=== PATIENT | male | born 1965 | race Caucasian/White ===

== ENCOUNTER 2017-04-12 00:02 | Inpatient (IN) | payer MEDICAID, OTHER ==
[~2017-04-12] VITALS: Ht 188 cm; Wt 65.3 kg
[~2017-04-12 00:02] MED LIST: ACET650S24 RC; LEVO500T90 PO; METR500T4 PO; PANT40TA2 PO; RIFA550T PO
[2017-04-12] MEDS ORDERED: IV D5/ 0.9% NACL 1,000 ML IV ONE (00:11)
[2017-04-12] MEDS ORDERED: ONDANSETRON 4 MG/2 ML VIAL IV ONE (00:15)
[2017-04-12] MEDS ORDERED: THIAMINE HCL 200 MG/2 ML VIAL IV ONE (00:15)
[2017-04-12] MEDS ORDERED: PANTOPRAZOLE SODIUM 40 MG VIAL IV ONE (00:15)
--- NOTE | 2017-04-12 00:28 | NUR ---
Patient BIB [facility] c/o anxiety. [facility] reported that this was the third visit for the same problem but that patient refused transportation the prior two times. Patient presents A/O x1, shaking uncontrollably despite being afebrile and provided with multiple blankets. Patient unable to provide detailed history and states that he thinks he had a stroke about a year ago. To room 5A, [facility] at bedside for MSE.
[2017-04-12] MEDS ORDERED: PANTOPRAZOLE SODIUM 40 MG VIAL ONE (00:39)
[2017-04-12] MEDS ORDERED: THIAMINE HCL 200 MG/2 ML VIAL ONE (00:39)
[2017-04-12] MEDS ORDERED: ONDANSETRON 4 MG/2 ML VIAL ONE (00:39)
[2017-04-12 00:44] LABS: BASOPHILS % (AUTO) 0.3 % (0.0-2.0); EOSINOPHILS # (AUTO) 0.1 K/uL (0.0-0.7); HEMOGLOBIN 15.8 G/DL (14.0-18.0); LYMPHOCYTES # (AUTO) 0.5 K/UL (0.8-4.8); LYMPHOCYTES % (AUTO) 7.3 % (20.5-51.5); MEAN CORPUSCULAR HEMOGLOBIN 32.4 UUG (27.0-31.0); MEAN CORPUSCULAR HGB CONC 32 g/dL (32.0-37.0); MEAN CORPUSCULAR VOLUME 100.2 FL (82.0-92.0); MONOCYTES # (AUTO) 0.7 K/UL (0.1-1.30); NEUTROPHILS # (AUTO) 6.1 K/UL (1.8-8.9); NEUTROPHILS % (AUTO) 82.4 % (38.5-71.5); PLATELET COUNT (AUTO) 142 K/UL (150-450); RED BLOOD CELL COUNT(AUTO) 4.89 MIL/UL (4.7-6.1); WHITE BLOOD COUNT (AUTO) 7.4 K/UL (4.0-11.2)
[2017-04-12 00:54] LABS: ETHANOL < 3 MG/DL (0-0)
[2017-04-12 00:56] LABS: BILIRUBIN,DIRECT 0.7 mg/dL (0.0-0.2); BILIRUBIN,TOTAL 2.8 mg/dL (0.2-1.0); CREATININE 0.9 mg/dL (0.6-1.3); TOTAL PROTEIN, SERUM 6.7 g/dL (6.4-8.2)
[2017-04-12 01:01] LABS: POTASSIUM 2.9 mmol/L (3.5-5.1)
[2017-04-12] MEDS ORDERED: IV NORMAL SALINE 1000 ML BAG IV ONE (01:15)
[2017-04-12] MEDS ORDERED: LORAZEPAM 2 MG/1 ML VIAL IV ONE (01:15)
[2017-04-12] MEDS ORDERED: MAGNESIUM SULFATE/D5W 100 ML ONE (01:25)
[2017-04-12] MEDS: MAGNESIUM SULFATE/D5W 100 ML IV SCH ×3 (01:30→04:44)
[2017-04-12] MEDS ORDERED: PIPERACILLIN SODIUM/TAZOBACTAM 3.375 G in IV DEXTROSE 5% 50 ML IV ONE (01:30)
[2017-04-12] MEDS ORDERED: METRONIDAZOLE 500 MG/NS 100 ML PIGGYBACK IV ONE (01:30)
[2017-04-12] MEDS ORDERED: LORAZEPAM 2 MG/1 ML VIAL ONE (01:34)
[2017-04-12 01:36] LABS: *OCCULT BLOOD STOOL NEGATIVE (NEGATIVE)
[2017-04-12] MEDS ORDERED: ENOXAPARIN SODIUM 80 MG/0.8 ML DISP.SYRIN SQ ONE ×2 (01:45→01:47)
[2017-04-12 01:49] LABS: *AMPHETAMINE, URINE NEGATIVE (NEGATIVE); *BARBITURATE, URINE NEGATIVE (NEGATIVE); *CANNABINOID, URINE NEGATIVE (NEGATIVE); *COCCAINE, URINE NEGATIVE (NEGATIVE); *OPIATE, URINE NEGATIVE (NEGATIVE); *PHENCYCLIDINE SCREEN,URINE NEGATIVE (NEGATIVE)
[2017-04-12] MEDS ORDERED: PIPERACILLIN/TAZOBACTAM/D5W 50 ML IV ONE (02:11)
[2017-04-12] MEDS ORDERED: METRONIDAZOLE 500 MG/NS 100ML 100 ML IV ONE (02:11)
[2017-04-12] MEDS ORDERED: Z GUARD REMEDY PASTE 57 GM TUBE TOP PRN (02:30)
[2017-04-12] MEDS ORDERED: ONDANSETRON 4 MG/2 ML VIAL IV PRN (02:30)
[2017-04-12] MEDS ORDERED: IV 0.9% SODIUM CHLORID+ 20 KCL 1,000 ML IV SCH (02:30)
[2017-04-12] MEDS ORDERED: MAGNESIUM HYDROXIDE 30 ML LIQUID UDC PO PRN (02:30)
[2017-04-12] MEDS ORDERED: HYDROMORPHONE 1 MG/1 ML DISP.SYRIN IV PRN ×2 (02:30→10:45)
[2017-04-12] MEDS ORDERED: ACETAMINOPHEN 325 MG TABLET PO PRN (02:30)
[2017-04-12 04:00] VITALS: BP 121/79
[2017-04-12] MEDS ORDERED: MAGNESIUM SULFATE/D5W 300 ML ONE (04:03)
--- NOTE | 2017-04-12 04:30 | NUR ---
RECEIVED PATIENT VIA GURNEY FROM ER. PATIENT IS A/O X4. REDNESS NOTED ALL OVER BODY. PATIENT REFUSED PICTURES TO BE TAKEN. NO OPEN AREA NOTED ON SKIN ASSESSMENT. DENIES PAIN AT THIS TIME. NO RESP. DISTRESS NOTED. VSS. PLACED ON TELE ORDERED, SR 90'S. ORIENTED PATIENT TO ROOM AND CALL LIGHT. CALL LIGHT IN REACH, BED ALARM ON. ALL NEEDS ATTENDED. WILL CONTINUE TO MONITOR.
--- NOTE | 2017-04-12 04:45 | NUR ---
Pharmacy Note: Magnesium Sulfate 4G IV ordered by ERMMel[facility]. A total of 4 (1G) bags were used. Bag #1 infused in ER. Bag #2 started in ER and endorsed to TELE. Bag #3 and #4 endorsed to TELE to complete.
--- NOTE | 2017-04-12 04:47 | NUR ---
Pt. admitted to TELE, under care of Dr. Rod Belongs List completed
--- NOTE | 2017-04-12 05:00 | NUR ---
PATIENT HAD A RUN OF ATRIAL-TACH UP TO THE 140'S, NON-SUSTAINED.
--- NOTE | 2017-04-12 06:33 | NUR ---
PATIENT ASLEEP IN BED. ON TELE SR. VSS. CALL LIGHT IN REACH.
[2017-04-12] MEDS: PANTOPRAZOLE SODIUM 40 MG TABLET.DR PO SCH ×2 (08:34→16:53)
[2017-04-12] MEDS: THIAMINE HCL 100 MG TABLET PO SCH (08:34)
[2017-04-12] MEDS: FOLIC ACID 1 MG TABLET PO SCH (08:34)
[2017-04-12] MEDS: PIPERACILLIN/TAZOBACTAM/D5W 50 ML IV SCH ×2 (08:35→14:04)
[2017-04-12] MEDS ORDERED: RIFAXIMIN 550 MG TABLET PO SCH (10:35)
[2017-04-12 11:19] LABS: BASOPHILS % (AUTO) 0.3 % (0.0-2.0); EOSINOPHILS % (AUTO) 0.6 % (0.0-7.0); HEMATOCRIT 44.4 % (40-50); LYMPHOCYTES # (AUTO) 0.7 K/UL (0.8-4.8); LYMPHOCYTES % (AUTO) 11.6 % (20.5-51.5); MEAN CORPUSCULAR HEMOGLOBIN 34.3 UUG (27.0-31.0); MEAN CORPUSCULAR HGB CONC 34 g/dL (32.0-37.0); MEAN CORPUSCULAR VOLUME 101.3 FL (82.0-92.0); MONOCYTES # (AUTO) 0.7 K/UL (0.1-1.30); NEUTROPHILS # (AUTO) 4.6 K/UL (1.8-8.9); NEUTROPHILS % (AUTO) 76.5 % (38.5-71.5); PLATELET COUNT (AUTO) 128 K/UL (150-450); RED BLOOD CELL COUNT(AUTO) 4.39 MIL/UL (4.7-6.1)
[2017-04-12 11:36] LABS: THYROID STIMULATING HORMONE 2.296 mIU/mL (0.358-3.740)
[2017-04-12 11:45] VITALS: BP 109/54
[2017-04-12 11:49] LABS: BILIRUBIN,TOTAL 3.8 mg/dL (0.2-1.0); CREATININE 0.7 mg/dL (0.6-1.3); PHOSPHOROUS 3.3 mg/dL (2.5-4.9); POTASSIUM 3.2 mmol/L (3.5-5.1); TOTAL PROTEIN, SERUM 5.6 g/dL (6.4-8.2)
[2017-04-12 11:53] LABS: *BILIRUBIN,URIN NEGATIVE (NEGATIVE); *BLOOD, URINE NEGATIVE (NEGATIVE); *CLARITY,URINE CLEAR (CLEAR); *COLOR,URINE YELLOW (YELLOW); *KETONES,URINE NEGATIVE (NEGATIVE); *PROTEIN,URINE NEGATIVE (NEGATIVE); *UROBILINOGEN,URINE 0.2 E.U./dl (NORMAL); LEUKOCYTE ESTERASE ,URINE NEGATIVE (NEGATIVE); NITRITE, URINE NEGATIVE (NEGATIVE); UGLUCOSE NEGATIVE (NEGATIVE)
[2017-04-12 12:00] VITALS: BP 127/83
[2017-04-12] MEDS: CLOTRIMAZOLE/BETAMET DIPROP CREAM 15 GM TUBE TOP SCH ×2 (12:30→21:12)
[2017-04-12] MEDS ORDERED: POTASSIUM CHLORIDE 20 MEQ TAB.PRT.SR PO ONE (12:30)
[2017-04-12 12:42] LABS: BACTERIA,URINE FEW /HPF (NONE SEEN); RBC,URINE 0-3 /HPF (0-3); SQUAMOUS EPITHELIAL CELL,UR FEW /HPF (NONE SEEN); WBC,URINE 0-3 /HPF (0-3)
[2017-04-12] MEDS: MULTIVITAMINS,THERAPEUTIC TABLET PO SCH (14:00)
[2017-04-12] MEDS: ENOXAPARIN SODIUM 80 MG/0.8 ML DISP.SYRIN SQ SCH ×2 (14:02→21:16)
[2017-04-12 15:47] VITALS: BP 132/86
[2017-04-12] MEDS ORDERED: LEVOFLOXACIN 500 MG/D5W 500 MG in PREMIXED 1 EACH IV SCH (17:30)
--- NOTE | 2017-04-12 18:30 | NUR ---
PT picked up by [facility] for HIDA scan. PT signed consent. Nuclear tech took pts consent for HIDA scan. Still awaiting psych consult. [employer] Instrument [employer]airer Dr herr saw pt and d/c telemetry. PT has been SNR throughout the day. Pt is in no acute distress upon leaving floor.
[2017-04-12] MEDS: METRONIDAZOLE 500 MG/NS 100ML 500 MG in PREMIXED 1 EACH IV SCH (18:47)
[2017-04-12 20:00] VITALS: BP 109/73
--- NOTE | 2017-04-12 20:40 | NUR ---
PATIENT RETURNED FROM HIDA SCAN. PT IS ALERT, IN NO ACUTE DISTRESS. CONTINUE ON IVF. BED ALARM ON, CALL LIGHT WITHIN REACH. WILL CONTINUE TO MONITOR.
[2017-04-12] MEDS: LEVOFLOXACIN 500 MG/D5W 500 MG in PREMIXED 1 EACH IV SCH (21:12)
[2017-04-12] MEDS: IV 0.9% SODIUM CHLORID+ 20 KCL 1,000 ML IV PRN (23:59)
[2017-04-13] MEDS: LORAZEPAM 2 MG/1 ML VIAL IV PRN (00:05)
[2017-04-13] MEDS: METRONIDAZOLE 500 MG/NS 100ML 500 MG in PREMIXED 1 EACH IV SCH ×4 (01:34→23:00)
[2017-04-13] MEDS: HYDROCODONE/APAP 5-325MG TABLET PO PRN (03:48)
--- NOTE | 2017-04-13 06:00 | NUR ---
PT SLEPT INTERMITTENTLY, IN NO ACUTE DISTRESS, NO SOB. ANTIBIOTICS ADMINISTERED ORDERED, NO ADVERSE REACTION NOTED. PATIENT REFUSED TO HAVE PICTURES TAKEN. WILL ENDORSE TO DAY SHIFT RN, RE ATTEMPT TO TAKE PICTURES. CALL LIGHT WITHIN REACH, BED ALARM ON. WILL CONTINUE TO MONITOR.
[2017-04-13] MEDS: PANTOPRAZOLE SODIUM 40 MG TABLET.DR PO SCH ×2 (06:13→17:38)
[2017-04-13 07:02] LABS: CREATININE 0.7 mg/dL (0.6-1.3); MAGNESIUM 1.7 mg/dL (1.8-2.4); PHOSPHOROUS 2.3 mg/dL (2.5-4.9); POTASSIUM 3.3 mmol/L (3.5-5.1)
[2017-04-13 07:22] LABS: BASOPHILS % (AUTO) 0.4 % (0.0-2.0); EOSINOPHILS # (AUTO) 0.1 K/uL (0.0-0.7); EOSINOPHILS % (AUTO) 2.1 % (0.0-7.0); HEMOGLOBIN 13.7 G/DL (14.0-18.0); LYMPHOCYTES # (AUTO) 0.6 K/UL (0.8-4.8); LYMPHOCYTES % (AUTO) 15.8 % (20.5-51.5); MEAN CORPUSCULAR HEMOGLOBIN 34.4 UUG (27.0-31.0); MEAN CORPUSCULAR HGB CONC 34 g/dL (32.0-37.0); MEAN CORPUSCULAR VOLUME 102.9 FL (82.0-92.0); MONOCYTES # (AUTO) 0.5 K/UL (0.1-1.30); MONOCYTES % (AUTO) 14.1 % (0.0-11.0); NEUTROPHILS # (AUTO) 2.3 K/UL (1.8-8.9); NEUTROPHILS % (AUTO) 67.6 % (38.5-71.5); PLATELET COUNT (AUTO) 96 K/UL (150-450); RED BLOOD CELL COUNT(AUTO) 3.98 MIL/UL (4.7-6.1)
[2017-04-13 07:24] LABS: WHITE BLOOD COUNT (AUTO) 3.6 K/UL (4.0-11.2)
[2017-04-13 07:58] LABS: LYMPHOCYTES % (MANUAL) 15 % (20-40); MONOCYTES % (MANUAL) 14 % (2-10); NEUTROPHILS % (MANUAL) 71 % (42-75)
[2017-04-13] MEDS: FOLIC ACID 1 MG TABLET PO SCH (09:37)
[2017-04-13] MEDS: MULTIVITAMINS,THERAPEUTIC TABLET PO SCH (09:37)
[2017-04-13] MEDS: THIAMINE HCL 100 MG TABLET PO SCH (09:37)
[2017-04-13] MEDS: ENOXAPARIN SODIUM 80 MG/0.8 ML DISP.SYRIN SQ SCH (09:39)
[2017-04-13] MEDS: CLOTRIMAZOLE/BETAMET DIPROP CREAM 15 GM TUBE TOP SCH ×2 (09:44→20:44)
[2017-04-13] MEDS ORDERED: MAGNESIUM SULFATE/D5W 100 ML IV SCH (10:00)
[2017-04-13] MEDS ORDERED: POTASSIUM PHOSPHATE MM 7.5 MMOL in IV DEXTROSE 5% 100 ML IV ONE (10:00)
[2017-04-13] MEDS ORDERED: IV NORMAL SALINE 250 ML IV ONE (10:51)
[2017-04-13] MEDS ORDERED: IOHEXOL 350 100 ML INFUS..BTL ONE (10:51)
[2017-04-13 11:58] VITALS: BP 131/94
[2017-04-13] MEDS: IV 0.9% SODIUM CHLORID+ 20 KCL 1,000 ML IV PRN (13:54)
[2017-04-13 15:17] VITALS: BP 133/94
--- NOTE | 2017-04-13 18:38 | NUR ---
DR. KINSEY RADIOLOGIST CALLED [facility] PT HAD BLOOD CLOTS IN BLE AND I CALL PIPED POCKET MACHINE OPERATOR HEBER TO MAKE HER AWAre pt on bed rest and monitored for chest pain and sob. . pt will be npo after mid noc tonite for endoscopy pt has blood clots in his lungs
[2017-04-13] MEDS: HEPARIN/D5W DRIP 500 ML IV PRN (19:22)
--- NOTE | 2017-04-13 19:30 | NUR ---
PT ALERT, NO RESPIRATORY DISTRESS, NO C/O OF CHEST PAIN OR SOB. HEPARIN DRIP RUNNING ORDERED. PATIENT IS ANXIOUS TO LEAVE AND GO HOME. BED ALARM ON, CALL LIGHT WITHIN REACH. WILL CONTINUE TO MONITOR.
[2017-04-13 20:00] VITALS: BP 136/95
[2017-04-13] MEDS: MIRTAZAPINE 15 MG TABLET PO SCH (20:43)
[2017-04-13] MEDS: busPIRone 5 MG TABLET PO SCH (20:43)
[2017-04-13] MEDS: LEVOFLOXACIN 500 MG/D5W 500 MG in PREMIXED 1 EACH IV SCH (20:44)
[2017-04-13] MEDS ORDERED: ENOXAPARIN SODIUM 80 MG/0.8 ML DISP.SYRIN SQ SCH (21:00)
--- NOTE | 2017-04-14 | NUR ---
PT KEPT NPO AFTER MIDNIGHT ORDERED FOR EGD AND CT SCAN ABDOMEN/PELVIS WITH CONTRAST IN THE MORNING.
--- NOTE | 2017-04-14 03:00 | NUR ---
STOPPED HEPARIN INFUSION ORDERED. DR. HDZ INFORMED AND IS AWARE.
--- NOTE | 2017-04-14 04:30 | NUR ---
PT IS ANXIOUS, UPSET, WANTS TO LEAVE AND GO HOME. PT INSISTS ON GETTING SOMETHING TO EAT AND DRINK AND STATED "OR ELSE I WILL GET UP AND DRINK FROM THE [facility]". DISCUSSED WITH PATIENT REGARDING NPO STATUS PRIOR TO PROCEDURE. PATIENT REFUSED TO LISTEN AND IS INSISTENT/UNCOOPERATIVE.
[2017-04-14] MEDS: LORAZEPAM 2 MG/1 ML VIAL IV PRN (04:42)
[2017-04-14 04:55] VITALS: BP 135/88
[2017-04-14] MEDS: PANTOPRAZOLE SODIUM 40 MG TABLET.DR PO SCH ×3 (06:05→17:22)
[2017-04-14] MEDS: METRONIDAZOLE 500 MG/NS 100ML 500 MG in PREMIXED 1 EACH IV SCH (06:05)
[2017-04-14 07:10] LABS: BASOPHILS % (AUTO) 0.4 % (0.0-2.0); EOSINOPHILS # (AUTO) 0.1 K/uL (0.0-0.7); EOSINOPHILS % (AUTO) 2.5 % (0.0-7.0); HEMATOCRIT 43.4 % (40-50); HEMOGLOBIN 14.6 G/DL (14.0-18.0); LYMPHOCYTES # (AUTO) 0.7 K/UL (0.8-4.8); LYMPHOCYTES % (AUTO) 16.9 % (20.5-51.5); MEAN CORPUSCULAR HEMOGLOBIN 34.6 UUG (27.0-31.0); MEAN CORPUSCULAR HGB CONC 34 g/dL (32.0-37.0); MEAN CORPUSCULAR VOLUME 103.3 FL (82.0-92.0); MONOCYTES # (AUTO) 0.5 K/UL (0.1-1.30); MONOCYTES % (AUTO) 13.1 % (0.0-11.0); NEUTROPHILS # (AUTO) 2.6 K/UL (1.8-8.9); NEUTROPHILS % (AUTO) 67.1 % (38.5-71.5); PLATELET COUNT (AUTO) 109 K/UL (150-450); RED BLOOD CELL COUNT(AUTO) 4.21 MIL/UL (4.7-6.1); WHITE BLOOD COUNT (AUTO) 3.9 K/UL (4.0-11.2)
[2017-04-14 07:34] LABS: ALANINE AMINOTRANSFERASE 20 U/L (16-63); ALKALINE PHOSPHATASE 135 U/L (50-136); ASPARTATE AMINOTRANSFERASE 31 U/L (15-37); BILIRUBIN,TOTAL 1.6 mg/dL (0.2-1.0); CARBON DIOXIDE 26 mmol/L (21-32); CHLORIDE 109 mmol/L (98-107); CREATININE 0.6 mg/dL (0.6-1.3); GLUCOSE 80 mg/dL (74-106); PHOSPHOROUS 3.1 mg/dL (2.5-4.9); POTASSIUM 3.4 mmol/L (3.5-5.1); TOTAL PROTEIN, SERUM 5.6 g/dL (6.4-8.2); UREA NITROGEN, BLOOD 1 mg/dL (7-18)
[2017-04-14 08:05] LABS: MAGNESIUM 1.5 mg/dL (1.8-2.4)
[2017-04-14] MEDS: THIAMINE HCL 100 MG TABLET PO SCH (08:35)
[2017-04-14] MEDS: busPIRone 5 MG TABLET PO SCH ×3 (08:36→17:22)
[2017-04-14] MEDS: MULTIVITAMINS,THERAPEUTIC TABLET PO SCH (08:36)
[2017-04-14] MEDS: FOLIC ACID 1 MG TABLET PO SCH (08:36)
[2017-04-14] MEDS: CLOTRIMAZOLE/BETAMET DIPROP CREAM 15 GM TUBE TOP SCH ×2 (09:11→20:03)
[2017-04-14] MEDS ORDERED: IV NORMAL SALINE 250 ML IV ONE (10:06)
[2017-04-14] MEDS ORDERED: IOHEXOL 350 100 ML INFUS..BTL ONE (10:06)
[2017-04-14] MEDS: MAGNESIUM SULFATE/D5W 100 ML IV SCH ×2 (10:50→11:55)
--- NOTE | 2017-04-14 11:07 | NUR ---
per myriam, health and wellness manager put pt on full liquids
[2017-04-14 11:52] VITALS: BP 140/98
[2017-04-14] MEDS: POTASSIUM CHLORIDE 50 ML IV SCH ×2 (13:20→13:32)
[2017-04-14] MEDS: METRONIDAZOLE 500 MG TABLET PO SCH ×2 (14:37→21:09)
[2017-04-14 15:34] VITALS: BP 145/94
[2017-04-14] MEDS: HEPARIN/D5W DRIP 500 ML IV PRN (15:56)
[2017-04-14 16:56] LABS: *POTASSIUM RNDM,URINE 7 mmol/L (25-125)
[2017-04-14 17:12] LABS: *CREATININE,URINE < 13.0 mg/dL (30-125)
--- NOTE | 2017-04-14 19:27 | NUR ---
End of shift note: pt is laying in bed comfortably. No s/s of respiratory distress noted, no pain noted. Iv intact/patent. All safety needs are met. Heparin is continued per Dr's order. No s/s of bleeding noted. Pt is A&Ox3.
--- NOTE | 2017-04-14 19:30 | NUR ---
PT IN BED, RESTING, IN NO ACUTE SIGNS OF DISTRESS NOTED. HEPARIN DRIP STILL INFUSING ORDERED. SAFETY OBSERVED. CALL LIGHT WITHIN REACH.
[2017-04-14] MEDS: LEVOFLOXACIN 500 MG TABLET PO SCH (19:57)
[2017-04-14 20:00] VITALS: BP 144/95
[2017-04-14] MEDS: MIRTAZAPINE 15 MG TABLET PO SCH (20:02)
--- NOTE | 2017-04-14 22:00 | NUR ---
PTT RESULT 51.7 , NO CHANGE. RECHECK PTT TOMORROW AM.
[2017-04-15 05:00] VITALS: BP 132/90
[2017-04-15] MEDS: METRONIDAZOLE 500 MG TABLET PO SCH ×3 (06:11→20:43)
[2017-04-15] MEDS: PANTOPRAZOLE SODIUM 40 MG TABLET.DR PO SCH ×2 (06:11→16:59)
--- NOTE | 2017-04-15 06:51 | NUR ---
PT IN BED, SLEPT INTERMITTENTLY DURING SHIFT. IN ACUTE SIGNS OF DISTRESS. HEPARIN DRIP STILL RUNNING SAME RATE. NO A/E OBSERVED. NO ACTIVE BLEEDING NOTED. DENIES PAIN. SAFETY MAINTAINED. CALL LIGHT WITHIN REACH.
[2017-04-15 07:21] LABS: ALANINE AMINOTRANSFERASE 18 U/L (16-63); ALKALINE PHOSPHATASE 133 U/L (50-136); ASPARTATE AMINOTRANSFERASE 27 U/L (15-37); BILIRUBIN,TOTAL 1.1 mg/dL (0.2-1.0); CARBON DIOXIDE 29 mmol/L (21-32); CHLORIDE 106 mmol/L (98-107); CREATININE 0.6 mg/dL (0.6-1.3); GLUCOSE 93 mg/dL (74-106); MAGNESIUM 1.6 mg/dL (1.8-2.4); POTASSIUM 3.2 mmol/L (3.5-5.1); TOTAL PROTEIN, SERUM 5.9 g/dL (6.4-8.2); UREA NITROGEN, BLOOD 1 mg/dL (7-18)
[2017-04-15 08:08] LABS: BASOPHILS % (AUTO) 0.3 % (0.0-2.0); EOSINOPHILS # (AUTO) 0.2 K/uL (0.0-0.7); EOSINOPHILS % (AUTO) 3.8 % (0.0-7.0); HEMATOCRIT 46.5 % (40-50); HEMOGLOBIN 15.7 G/DL (14.0-18.0); LYMPHOCYTES # (AUTO) 0.9 K/UL (0.8-4.8); LYMPHOCYTES % (AUTO) 19.8 % (20.5-51.5); MEAN CORPUSCULAR HEMOGLOBIN 34.8 UUG (27.0-31.0); MEAN CORPUSCULAR HGB CONC 34 g/dL (32.0-37.0); MEAN CORPUSCULAR VOLUME 102.8 FL (82.0-92.0); MONOCYTES # (AUTO) 0.6 K/UL (0.1-1.30); MONOCYTES % (AUTO) 12.7 % (0.0-11.0); NEUTROPHILS # (AUTO) 2.8 K/UL (1.8-8.9); NEUTROPHILS % (AUTO) 63.4 % (38.5-71.5); PLATELET COUNT (AUTO) 109 K/UL (150-450); RED BLOOD CELL COUNT(AUTO) 4.52 MIL/UL (4.7-6.1); WHITE BLOOD COUNT (AUTO) 4.5 K/UL (4.0-11.2)
[2017-04-15] MEDS: MULTIVITAMINS,THERAPEUTIC TABLET PO SCH (08:39)
[2017-04-15] MEDS: CLOTRIMAZOLE/BETAMET DIPROP CREAM 15 GM TUBE TOP SCH ×2 (08:39→20:37)
[2017-04-15] MEDS: busPIRone 5 MG TABLET PO SCH ×3 (08:39→16:59)
[2017-04-15] MEDS: THIAMINE HCL 100 MG TABLET PO SCH (08:39)
[2017-04-15] MEDS: FOLIC ACID 1 MG TABLET PO SCH (08:39)
[2017-04-15] MEDS ORDERED: MAGNESIUM SULFATE/D5W 100 ML IV SCH (10:00)
[2017-04-15] MEDS ORDERED: POTASSIUM CHLORIDE 20 MEQ TAB.PRT.SR PO ONE (10:00)
[2017-04-15 11:12] LABS: AFP, TUMOR MARKER 3.6 ng/mL (0.0-8.3)
[2017-04-15 11:32] VITALS: BP 133/90
--- NOTE | 2017-04-15 11:41 | NUR ---
advance the diet from full liquids to regular diet per blake hankins
[2017-04-15 15:14] VITALS: BP_SYST 131; BP_SYST 133; BP_DIAS 90
[2017-04-15] MEDS: HYDROCODONE/APAP 5-325MG TABLET PO PRN (18:19)
[2017-04-15] MEDS: HEPARIN/D5W DRIP 500 ML IV PRN (18:22)
--- NOTE | 2017-04-15 19:20 | NUR ---
Bedside reporting with NATALIE Barahona. Patient on bed, awake, verbally responsive. Denies any pain/discomforts at this time. Heparin drip continuos as ordered. No s/s of adverse reaction noted. Safety measures and fall precaution maintained. Continue care as planned.
--- NOTE | 2017-04-15 19:53 | NUR ---
NO CHANGES NOTED. ALL SAFETY NEEDS ARE MET. NO S/S OF BLEEDING NOTED. NO PAIN REPORTED. NO S/S OF RESPIRATORY DISTRESS NOTED.
[2017-04-15 20:00] VITALS: BP 137/101
[2017-04-15] MEDS: IV 0.9% SODIUM CHLORID+ 20 KCL 1,000 ML IV PRN (20:00)
--- NOTE | 2017-04-15 20:10 | NUR ---
Patient refused continued IVF with 20meq of KCL at 100cc/hour as ordered. Attempted to reduced the rate down to 50-20cc/hour , but still can not tolerate it. He complaint of severe burning on the IV site. Insisted to stop completely. Charge Nurse made aware.
[2017-04-15] MEDS: LEVOFLOXACIN 500 MG TABLET PO SCH (20:36)
[2017-04-15] MEDS: MIRTAZAPINE 15 MG TABLET PO SCH (20:36)
[2017-04-15] MEDS: LORAZEPAM 2 MG/1 ML VIAL IV PRN (20:36)
--- NOTE | 2017-04-15 20:40 | NUR ---
Very anxious and irritable. Ativan given as needed and ordered. Will monitor.
--- NOTE | 2017-04-15 22:02 | NUR ---
Sleeping during rounds.
--- NOTE | 2017-04-16 00:15 | NUR ---
Attempted to infuse IVF with KCl but still complaining of burning sensation on IV site. Hold it for now .
[2017-04-16 05:00] VITALS: BP 135/100
[2017-04-16] MEDS: PANTOPRAZOLE SODIUM 40 MG TABLET.DR PO SCH (06:07)
[2017-04-16] MEDS: METRONIDAZOLE 500 MG TABLET PO SCH ×2 (06:07→13:32)
[2017-04-16 06:23] LABS: BASOPHILS % (AUTO) 0.2 % (0.0-2.0); EOSINOPHILS # (AUTO) 0.1 K/uL (0.0-0.7); EOSINOPHILS % (AUTO) 1.9 % (0.0-7.0); HEMATOCRIT 45.5 % (40-50); HEMOGLOBIN 15.1 G/DL (14.0-18.0); LYMPHOCYTES # (AUTO) 0.8 K/UL (0.8-4.8); LYMPHOCYTES % (AUTO) 10.4 % (20.5-51.5); MEAN CORPUSCULAR HEMOGLOBIN 34.6 UUG (27.0-31.0); MEAN CORPUSCULAR HGB CONC 33 g/dL (32.0-37.0); MEAN CORPUSCULAR VOLUME 104.5 FL (82.0-92.0); MONOCYTES # (AUTO) 0.8 K/UL (0.1-1.30); MONOCYTES % (AUTO) 10.2 % (0.0-11.0); NEUTROPHILS # (AUTO) 5.8 K/UL (1.8-8.9); NEUTROPHILS % (AUTO) 77.3 % (38.5-71.5); PLATELET COUNT (AUTO) 110 K/UL (150-450); RED BLOOD CELL COUNT(AUTO) 4.36 MIL/UL (4.7-6.1); WHITE BLOOD COUNT (AUTO) 7.5 K/UL (4.0-11.2)
[2017-04-16 06:39] LABS: BILIRUBIN,TOTAL 0.7 mg/dL (0.2-1.0); CREATININE 0.8 mg/dL (0.6-1.3); MAGNESIUM 1.6 mg/dL (1.8-2.4); PHOSPHOROUS 3.2 mg/dL (2.5-4.9); POTASSIUM 3.4 mmol/L (3.5-5.1); TOTAL PROTEIN, SERUM 5.8 g/dL (6.4-8.2)
--- NOTE | 2017-04-16 07:05 | NUR ---
Bedside reporting with NATALIE Fallon. Patient slept well. No complaint of pain/discomforts presented all night. All needs attended and met. No significant event reported throughout the night, Continue care as planned.
--- NOTE | 2017-04-16 08:00 | NUR ---
PATIENT REMAINS ON HEPARIN DRIP AT 1050 UNITS PER HOUR ORDERED WITH NO ADVERSE OR ALLERGIC REACTIONS AT THIS TIME.DENIES PAIN OR DISCOMFORTS AT THIS TIME MADE COMFORTABLE WILL CONTINUE TO OBSERVE.
[2017-04-16] MEDS: busPIRone 5 MG TABLET PO SCH ×2 (09:10→12:36)
[2017-04-16] MEDS: MULTIVITAMINS,THERAPEUTIC TABLET PO SCH (09:10)
[2017-04-16] MEDS: THIAMINE HCL 100 MG TABLET PO SCH (09:10)
[2017-04-16] MEDS: FOLIC ACID 1 MG TABLET PO SCH (09:10)
[2017-04-16] MEDS: CLOTRIMAZOLE/BETAMET DIPROP CREAM 15 GM TUBE TOP SCH (09:13)
[2017-04-16] MEDS ORDERED: POTASSIUM CHLORIDE 20 MEQ TAB.PRT.SR PO ONE (09:45)
--- NOTE | 2017-04-16 10:00 | NUR ---
HEPARIN DRIP DISCONTINUED ORDERED MAG LEVEL IS 1.6,POTASSIUM LEVEL IS 3.4 WITH NEW ORDERS AND NOTED.
[2017-04-16] MEDS: IV 0.9% SODIUM CHLORID+ 20 KCL 1,000 ML IV PRN (10:11)
[2017-04-16] MEDS: MAGNESIUM SULFATE/D5W 100 ML IV SCH ×2 (10:12→11:17)
[2017-04-16] MEDS: PROTEIN SUPPLEMENT (PROSTAT) 30 ML LIQUID PO SCH ×2 (10:21→12:35)
[2017-04-16 11:47] VITALS: BP 132/95
[2017-04-16] MEDS ORDERED: RIVAROXABAN 15 MG TABLET PO SCH ×2 (14:15→21:00)
[2017-04-16 14:18] VITALS: BP 130/90
[2017-04-16] MEDS ORDERED: MULT-24 PO (14:19)
[2017-04-16] MEDS ORDERED: MIRT15TA7 PO (14:19)
[2017-04-16] MEDS ORDERED: HYDR-3326 PO ×2 (14:19→14:21)
[2017-04-16] MEDS ORDERED: ACET325T53 PO (14:19)
[2017-04-16] MEDS ORDERED: LEVO500T2 PO ×2 (14:19→14:24)
[2017-04-16] MEDS ORDERED: THIA100T13 PO (14:19)
[2017-04-16] MEDS ORDERED: METR500T4 PO ×2 (14:19→14:24)
[2017-04-16] MEDS ORDERED: FOLI1TAB16 PO (14:19)
[2017-04-16] MEDS ORDERED: RIVA15TA PO (14:19)
[2017-04-16] MEDS ORDERED: PROT30LI PO (14:19)
[2017-04-16] MEDS ORDERED: CLOT15CR36 TOP (14:19)
[2017-04-16] MEDS ORDERED: BUSP5TAB3 PO (14:19)
--- NOTE | 2017-04-16 14:54 | NUR ---
PATIENT AWARE THAT HE IS BEING DISCHARGED STATED OKAY WILL LEAVE IN ABOUT 30 MINS WANTS TO RELAX FOR A FEW MINUTES
[2017-04-16 15:40] VITALS: BP 137/99
[2017-04-16 16:07] LABS: *VITAMIN D 25-OH VIT D 16 ng/mL (.); *VITAMIN D 25-OH, D2 <1.0 ng/mL (.); *VITAMIN D 25-OH, D3 16 ng/mL (.)
[2017-04-16] MEDS ORDERED: LIDOCAINE HCL 1% 20 ML VIAL MC ONE (16:28)
[2017-04-16] MEDS ORDERED: IV LACTATED RINGERS SOLUTION 1,000 ML BAG IV ONE (16:28)
[2017-04-16] MEDS ORDERED: PROPOFOL 200 MG/20 ML BOTTLE IV ONE (16:28)
--- NOTE | 2017-04-16 16:30 | NUR ---
PATIENT DISCHARGED WITH DISCHARGE INSTRUCTIONS AND PRESCRIPTIONS AND AND ALL HIS PERSONAL BELONGINGS PATIENT HAS NO PERSONAL CLOTHES TO WEAR THE BEAUTY THERAPIST AWARE AND WAS ABLE TO GET A PAIR OF PANTS BUT NO SHIRT SO THE PATIENT WAS DISCHARGED WITH THE HOSPITAL GOWN. PATIENT INSTRUCTED ON USE OF HIS XARELTO/ATB ETC AND TO CALL HIS PRIMARY DOCTOR FOR A FOLLOW UP APPOINTMENT WITHIN THE NEXT ONE TO TWO WEEKS AND HE EXPRESSED UNDERSTANDING.THE PHARMACIST WAS NOTIFIED OF THE DISCHARGE
== END 2017-04-16 16:29 | disposition home or self-care (01) | DRG 134 ==
LOC: ER 00:04 → TELE 02:00 → MED 17:15
PROVIDERS: ADMIT Internal Medicine; ATTEND Internal Medicine
PROC: 0D748ZZ Dilation of Esophagogastric Junction, Via Natural or Artificial Opening Endoscopic (ICD-10-PCS; principal; 2017-04-14 08:53)
PROC: 0DB58ZX Excision of Esophagus, Via Natural or Artificial Opening Endoscopic, Diagnostic (ICD-10-PCS; principal; 2017-04-14 08:53)
DX: I26.99 Other pulmonary embolism without acute cor pulmonale (principal); I82.220 Acute embolism and thrombosis of inferior vena cava; E43 Unspecified severe protein-calorie malnutrition; D68.9 Coagulation defect, unspecified; D61.818 Other pancytopenia; J90 Pleural effusion, not elsewhere classified; R18.8 Other ascites; I82.493 Acute embolism and thrombosis of other specified deep vein of lower extremity, bilateral; D69.6 Thrombocytopenia, unspecified; E87.1 Hypo-osmolality and hyponatremia; L03.115 Cellulitis of right lower limb; E88.09 Other disorders of plasma-protein metabolism, not elsewhere classified; I48.0 Paroxysmal atrial fibrillation; E83.42 Hypomagnesemia; I10 Essential (primary) hypertension; E86.0 Dehydration; E87.6 Hypokalemia; F10.239 Alcohol dependence with withdrawal, unspecified; Z86.73 Personal history of transient ischemic attack (TIA), and cerebral infarction without residual deficits; R53.1 Weakness; F32.9 Major depressive disorder, single episode, unspecified; F41.9 Anxiety disorder, unspecified; R73.9 Hyperglycemia, unspecified; E80.6 Other disorders of bilirubin metabolism; R74.0 Nonspecific elevation of levels of transaminase and lactic acid dehydrogenase [LDH]; Z72.89 Other problems related to lifestyle; E83.51 Hypocalcemia; Z59.0 Homelessness; I34.0 Nonrheumatic mitral (valve) insufficiency; I36.1 Nonrheumatic tricuspid (valve) insufficiency; R21 Rash and other nonspecific skin eruption; K70.0 Alcoholic fatty liver; R16.1 Splenomegaly, not elsewhere classified; R91.1 Solitary pulmonary nodule; N20.0 Calculus of kidney; K80.20 Calculus of gallbladder without cholecystitis without obstruction; R13.10 Dysphagia, unspecified; Z68.1 Body mass index [BMI] 19.9 or less, adult; E83.119 Hemochromatosis, unspecified; K20.9 Esophagitis, unspecified; K22.2 Esophageal obstruction; K44.9 Diaphragmatic hernia without obstruction or gangrene; M51.37 Other intervertebral disc degeneration, lumbosacral region; I72.8 Aneurysm of other specified arteries; I51.3 Intracardiac thrombosis, not elsewhere classified; D53.9 Nutritional anemia, unspecified
CPT/HCPCS: 36415; 43235; 70030-TC; 71010; 71275; 76770; 78445; 80307; 82105; 83605; 83690; 83735; 84100; 84133; 84300; 84443; 85025; 85520; 85730; 87086; 93005; 93307; A4217; A4663; A9537; C9113; G0480; J1644; J1650; J1956; J2060; J2405; J2543; J3411; J3475; J3480; J3490; J7030; J7042; J7050; J7060; J7120; Q9967